=== PATIENT | male | born 1935 | race Native Hawaiian/Other Pacific Islander ===

== ENCOUNTER 2020-12-11 18:09 | Outpatient (CLI) | payer MEDICARE, MEDICAID | END 2020-12-11 18:10 | disposition critical access hospital (66) | LOC: EMS 18:09 | DX: R06.02 Shortness of breath (principal); R50.9 Fever, unspecified | CPT/HCPCS: A0425; A0429 ==

== ENCOUNTER 2020-12-11 18:29 | Emergency (ER) | payer MEDICARE, MEDICAID ==
[2020-12-11 19:01] LABS: BASOPHILS % (AUTO) 0.2 %; EOSINOPHILS % (AUTO) 0.1 %; HCT - HEMATOCRIT 37.4 % (42.0-52.0); HGB - HEMOGLOBIN 11.9 g/dL (14.0-18.0); LYMPHOCYTES # (AUTO) 0.1 10^3/uL (1.5-3.5); LYMPHOCYTES % (AUTO) 1.2 %; MEAN CORPUSCULAR HEMOGLOBIN 29.8 pg (27.0-31.0); MEAN CORPUSCULAR HGB CONC 31.8 g/dL (32.0-36.0); MEAN CORPUSCULAR VOLUME 93.5 fL (80.0-94.0); MEAN PLATELET VOLUME 8.8 fL (7.4-11.4); MONOCYTES # (AUTO) 0.2 10^3/uL (0.0-1.0); MONOCYTES % (AUTO) 2.5 %; NEUTROPHILS # (AUTO) 7.9 10^3/uL (1.5-6.6); NEUTROPHILS % (AUTO) 95.8 %; PLT - PLATELET COUNT 165 10^3/uL (130-450); RED CELL DISTRIBUTION WIDTH 14.2 % (12.0-15.0); WHITE BLOOD COUNT 8.3 x10^3/uL (4.8-10.8)
[2020-12-11 19:20] LABS: ALBUMIN 2.7 g/dL (3.2-5.5); ALBUMIN/GLOBULIN RATIO 0.6 (1.0-2.2); BILIRUBIN,TOTAL 1.8 mg/dL (0.2-1.0); CALCIUM 7.5 mg/dL (8.5-10.3); POTASSIUM 3.5 mmol/L (3.5-5.0); TOTAL PROTEIN 7.1 g/dL (6.7-8.2)
--- NOTE | 2020-12-11 19:44 | XRAY Report ---
PROCEDURE: Chest 1 View X-Ray INDICATIONS: Chest Pain TECHNIQUE: One view of the chest was acquired. COMPARISON: None FINDINGS: Surgical changes and devices: A left chest wall pacer is seen with a single intact lead. Lungs and pleura: No pleural effusions or pneumothorax. Bibasilar atelectasis is noted. Lungs are c lear. Mediastinum: Mediastinal contours appear normal. Heart size is normal. Bones and chest wall: No suspicious bony lesions. Overlying soft tissues appear unremarkable. IMPRESSION: Bibasilar atelectasis, otherwise no acute cardiopulmonary abnormality. Reviewed by: Williams Benitez on 12/11/2020 7:42 PM PDT Approved by: Williams Benitez on 12/11/2020 7:42 PM PDT Station ID: [id number]
--- NOTE | 2020-12-11 19:52 | ED Physician Documentation ---
History of Present Illness - Stated complaint Stated Complaint: SOA - Chief complaint Chief Complaint: Resp - History obtained from History obtained from: Patient, Family, EMS - History of Present Illness Timing: Today Pain level max: 0 Pain level now: 0 - Additonal information Additional information: Patient is an 85-year-old male brought in by EMS with his family for fever and mild cough and congestion today. Has had his Covid vaccination. No vomiting. A grandson has been sick recently as well. Nothing makes it better or worse. No chest pain. No diarrhea. No constipation. No recent travel. No antibiotics. Review of Systems Ten Systems: 10 systems reviewed and negative Constitutional: reports: Fever, Chills Nose: denies: Rhinorrhea / runny nose, Congestion GI: denies: Vomiting Skin: denies: Rash Musculoskeletal: denies: Neck pain, Back pain Neurologic: denies: Headache PD PAST MEDICAL HISTORY - Past Medical History Past Medical History: Yes Cardiovascular: Hypertension, High cholesterol, Coronary artery disease - Past Surgical History Past Surgical History: Yes Cardiovascular: Pacemaker - Allergies Allergies/Adverse Reactions: Allergies Allergy/AdvReac Type Severity Reaction Status Date / Time No Known Drug Allergies Allergy Verified 12/11/20 18:43 - Living Situation Living Situation: reports: With family Living Arrangement: reports: At home - Social History Does the pt smoke?: No Smoking Status: Never smoker Does the pt have substance abuse?: No - Family History Family history: reports: Non contributory PD ED PE NORMAL - Vitals Vital signs reviewed: Yes - General General: Alert and oriented X 3, No acute distress, Well developed/nourished - HEENT HEENT: Moist mucous membranes - Neck Neck: Supple, no meningeal sign - Cardiac Cardiac: RRR, Strong equal pulses - Respiratory Respiratory: No respiratory distress, Clear bilaterally - Abdomen Abdomen: Soft, Other (mild TTP RUQ, no peritoneal signs. ) - Back Back: No CVA TTP, No spinal TTP - Derm Derm: Warm and dry - Extremities Extremities: No edema - Neuro Neuro: Alert and oriented X 3 - Psych Psych: Normal mood, Normal affect Results - Vitals Vitals: Vital Signs - 24 hr 12/11/20 12/11/20 12/11/20 18:35 18:53 19:22 Temperature 38.0 C H Heart Rate 73 75 83 Respiratory 18 29 H 24 Rate Blood Pressure 139/49 H 143/59 H 147/66 H O2 Saturation 92 92 92 12/11/20 12/11/20 12/11/20 19:30 20:07 20:30 Temperature Heart Rate 86 92 90 Respiratory 18 30 H 16 Rate Blood Pressure 165/74 H 165/74 H 140/72 H O2 Saturation 92 92 91 L 12/11/20 12/11/20 21:00 21:30 Temperature Heart Rate 90 92 Respiratory 25 H 24 Rate Blood Pressure 133/118 H 151/57 H O2 Saturation 93 90 L Oxygen O2 Source Room air - Labs Labs: Laboratory Tests 12/11/20 12/11/20 12/11/20 18:56 18:56 18:56 WBC 8.3 RBC 4.00 L Hgb 11.9 L Hct 37.4 L MCV 93.5 MCH 29.8 MCHC 31.8 L RDW 14.2 Plt Count 165 MPV 8.8 Neut # (Auto) 7.9 H Lymph # (Auto) 0.1 L Bandera # (Auto) 0.2 Eos # (Auto) 0.0 Baso # (Auto) 0.0 Absolute Nucleated RBC 0.00 Nucleated RBC % 0.0 Sodium 137 Potassium 3.5 Chloride 103 Carbon Dioxide 25 Anion Gap 9.0 BUN 24 H Creatinine 2.0 H Estimated GFR (MDRD) 32 L Glucose 137 H Calcium 7.5 L Total Bilirubin 1.8 H AST 482 H ALT 304 H Alkaline Phosphatase 390 H Troponin I High Sens 57.4 H* Total Protein 7.1 Albumin 2.7 L Globulin 4.4 H Albumin/Globulin Ratio 0.6 L Lipase 49 Nasal Adenovirus (PCR) Nasal B. parapertussis DNA (PCR) Nasal Coronavir 229E PCR Nasal Coronavir HKU1 PCR Nasal Coronavir NL63 PCR Nasal Coronavir OC43 PCR Nasal Enterovir/Rhinovir PCR Nasal Influenza B PCR Nasal Influenza A PCR Nasal Parainfluen 1 PCR Nasal Parainfluen 2 PCR Nasal Parainfluen 3 PCR Nasal Parainfluen 4 PCR Nasal RSV (PCR) Nasal B.pertussis DNA PCR Nasal C.pneumoniae (PCR) Ashish Human Metapneumo PCR Nasal M.pneumoniae (PCR) Nasal SARS-CoV-2 (PCR) 12/11/20 19:17 WBC RBC Hgb Hct MCV MCH MCHC RDW Plt Count MPV Neut # (Auto) Lymph # (Auto) Bandera # (Auto) Eos # (Auto) Baso # (Auto) Absolute Nucleated RBC Nucleated RBC % Sodium Potassium Chloride Carbon Dioxide Anion Gap BUN Creatinine Estimated GFR (MDRD) Glucose Calcium Total Bilirubin AST ALT Alkaline Phosphatase Troponin I High Sens Total Protein Albumin Globulin Albumin/Globulin Ratio Lipase Nasal Adenovirus (PCR) NOT DETECTED Nasal B. parapertussis DNA (PCR) NOT DETECTED Nasal Coronavir 229E PCR NOT DETECTED Nasal Coronavir HKU1 PCR NOT DETECTED Nasal Coronavir NL63 PCR NOT DETECTED Nasal Coronavir OC43 PCR NOT DETECTED Nasal Enterovir/Rhinovir PCR NOT DETECTED Nasal Influenza B PCR NOT DETECTED Nasal Influenza A PCR NOT DETECTED Nasal Parainfluen 1 PCR NOT DETECTED Nasal Parainfluen 2 PCR NOT DETECTED Nasal Parainfluen 3 PCR NOT DETECTED Nasal Parainfluen 4 PCR NOT DETECTED Nasal RSV (PCR) NOT DETECTED Nasal B.pertussis DNA PCR NOT DETECTED Nasal C.pneumoniae (PCR) NOT DETECTED Ashish Human Metapneumo PCR NOT DETECTED Nasal M.pneumoniae (PCR) NOT DETECTED Nasal SARS-CoV-2 (PCR) NOT DETECTED - Rads (name of study) cxr Radiology: Final report received, EMP read contemporaneously, See rad report (IMPRESSION: Bibasilar atelectasis, otherwise no acute cardiopulmonary abnormality. ) CT abd.pelvis Radiology: Other (pending at sign out) RUQ US Radiology: Final report received, EMP read contemporaneously, See rad report (IMPRESSION: Distended gallbladder with sludge and a thickened wall with a markedly dilated common bile duct. Findings suggest cholecystitis and possible choledocholithiasis. Consider MRCP. ) PD MEDICAL DECISION MAKING - ED course Complexity details: reviewed results, re-evaluated patient, considered differential, d/w patient ED course: 85-year-old male with findings concerning for choledocholithiasis and cholecystitis. He will likely need an MRCP and possible ERCP. He is visiting from [place]. Patient will be signed out to the [facility] emergency department physician for final disposition. Departure - Departure Clinical Impression: Cholecystitis, Elevated LFTs, Common bile duct dilation Fever Qualifiers: Fever type: unspecified Qualified Code(s): R50.9 - Fever, unspecified Condition: Stable
[2020-12-11 20:21] LABS: B. PARAPERTUSSIS- RESP PCR PAN NOT DETECTED; CORONAVIRUS 229E-RESP PCR NOT DETECTED; CORONAVIRUS HKU1-RESP PCR NOT DETECTED; CORONAVIRUS NL63-RESP PCR NOT DETECTED; CORONAVIRUS OC43-RESP PCR NOT DETECTED; HUMAN METAPNEUMOVIRUS NOT DETECTED; INFLUENZA A- RESP PCR PANEL NOT DETECTED; INFLUENZA B - RESP PCR PANEL NOT DETECTED; PARAINFLUENZA VIRUS 1 NOT DETECTED; PARAINFLUENZA VIRUS 2 NOT DETECTED; PARAINFLUENZA VIRUS 3 NOT DETECTED; PARAINFLUENZA VIRUS 4 NOT DETECTED; RHINOVIRUS/ENTEROVIRUS NOT DETECTED; RSV- RESP PCR PANEL NOT DETECTED; SARS-CoV-2 -RESP PCR PANEL NOT DETECTED
[2020-12-11 20:22] LABS: B. PERTUSSIS- RESP PCR PANEL NOT DETECTED; C. PNEUMONIAE- RESP PCR PANEL NOT DETECTED; M. PNEUMONIAE- RESP PCR PANEL NOT DETECTED
--- NOTE | 2020-12-11 21:51 | Ultrasound Report ---
PROCEDURE: Abdomen Limited INDICATIONS: elevated LFT, fever TECHNIQUE: Real-time focused scanning was performed of the abdomen, with image documentation. COMPARISON: None FINDINGS: Liver: Hepatic echotexture is coarse. Liver contours are irregular. These findings are suspicious for cirrhosis. No hepatic mass or intrahepatic biliary ductal dilatation. Gallbladder: There is gallbladder sludge with a thickened wall measuring 5.5 mm. Trace pericholecysti c fluid is noted. Gallbladder hydrops is present with the gallbladder measuring up to 4.3 x 9.8 cm. Biliary tree: The common bile duct measures up to 25 mm, significantly dilated. Right kidney: The right kidney has a normal size. There is a simple 1.6 cm mid pole cyst. IMPRESSION: Distended gallbladder with sludge and a thickened wall with a markedly dilated common b ile duct. Findings suggest cholecystitis and possible choledocholithiasis. Consider MRCP. Reviewed by: Williams Benitez on 12/11/2020 9:50 PM PDT Approved by: Williams Benitez on 12/11/2020 9:50 PM PDT Station ID: [id number]
[2020-12-11] MEDS ORDERED: PIPERACILLIN/TAZOBACTAM 3.375 GM in SODIUM CHLORIDE 0.9% MINIBAG 100 ML IV STA (22:16)
[2020-12-11] MEDS ORDERED: SODIUM CHLORIDE 0.9% 1,000 ML IV STA (22:21)
--- NOTE | 2020-12-11 22:48 | CT Report ---
PROCEDURE: Abdomen/Pelvis WO INDICATIONS: dilated CBD, fever, elevated LFT TECHNIQUE: Noncontrast 5 mm thick sections acquired from the diaphragms to the symphysis. 5 mm coronal and sagi ttal reformats were then performed. For radiation dose reduction, the following was used: automated exposure control, adjustment of mA and/or kV according to patient size. COMPARISON: None. FINDINGS: Image quality: Excellent. ABDOMEN: Lung bases: Lung bases are clear. Heart size is normal. Solid organs: Liver and spleen are normal in size. The gallbladder is dilated consistent with hydrop s of the gallbladder. The common bile duct is also severely dilated measuring up to 28 cm. No pancrea tic mass or pancreatic ductal dilatation is seen. No adrenal nodules. Bilateral simple renal cysts ar e noted. No hydronephrosis or nephroureteral calculi. Peritoneum and bowel: Unenhanced bowel loops demonstrate normal wall thickness and caliber. No free fluid or air. Nodes and vessels: No retroperitoneal or mesenteric adenopathy by size criteria. Aorta and inferior vena cava are normal in caliber. Miscellaneous: No ventral hernias. PELVIS: Genitourinary: Bladder wall thickness is normal. Miscellaneous: No inguinal hernias or adenopathy. Bones: There are multilevel degenerative changes and multilevel disc disease with intradiscal gas see n. No lytic or sclerotic osseous lesions. No vertebral body compression fractures. IMPRESSION: Gallbladder dilation and severe extrahepatic biliary ductal dilatation. Mild intrahepati c biliary ductal dilatation. No gallstone is identified. No pancreatic mass is identified. Charmaine Velez RCP. Reviewed by: Williams Benitez on 12/11/2020 10:47 PM PDT Approved by: Williams Benitez on 12/11/2020 10:47 PM PDT Station ID: [id number]
[2020-12-11] MEDS ORDERED: cefTRIAXone 1 GM in SODIUM CHLORIDE 0.9% MINIBAG 100 ML IV STA (23:51)
--- NOTE | 2020-12-11 23:55 | ED Physician Documentation ---
ED Addendum - Addendum Addendum: 12/11/20 23:54 d/w our surgeon Dr. Vargas who recommends transfer given patient's reyes rbidities. will contact Marilou charles. patient in nad, resting comfortably, asking to go home. d/w family who are agreeable to transfer. 12/11/20 23:55 Impression 1. acute cholangitis 2. shortness of breath 12/12/20 03:25 d/w [facility] - patient approved for admission, however there are no beds available. GI attending felt it was reasonable to send to for ERCP. Patient can go through the emergency department. They will call me back. 12/12/20 03:26 12/12/20 03:28 12/12/20 04:08 d/w ICU Dr. Samuel - no beds, we are 2nd on the list. ERCP attending would like to do ERCP within 24 h. They will call back in the morning. 12/12/20 07:[address] Pastrana, reji LAZCANO.
[2020-12-12] MEDS ORDERED: PIPERACILLIN/TAZOBACTAM 3.375 GM in SODIUM CHLORIDE 0.9% MINIBAG 100 ML IV SCH (07:20)
[2020-12-12] MEDS: PIPERACILLIN/TAZOBACTAM 3.375 GM in SODIUM CHLORIDE 0.9% MINIBAG 100 ML IV SCH ×2 (09:35→16:46)
--- NOTE | 2020-12-12 21:19 | ED Physician Documentation ---
ED Addendum - Addendum Addendum: 12/12/20 21:17 Got a call from the transfer center at asking for repeat vital signs. discussed that we are allowing patient to progress diet to [facility] since we have no eta for transfer. Transfer center states they currently do not have a bed and have no eta but will continue to call in for updates.
[2020-12-12] MEDS ORDERED: ENOXAPARIN 30 MG/0.3 ML SYRINGE SUBQ STA (21:21)
[2020-12-12 21:31] LABS: BASOPHILS % (AUTO) 0.1 %; EOSINOPHILS # (AUTO) 0.2 10^3/uL (0.0-0.7); EOSINOPHILS % (AUTO) 1.9 %; HCT - HEMATOCRIT 35.4 % (42.0-52.0); HGB - HEMOGLOBIN 11.6 g/dL (14.0-18.0); LYMPHOCYTES # (AUTO) 0.8 10^3/uL (1.5-3.5); LYMPHOCYTES % (AUTO) 8.7 %; MEAN CORPUSCULAR HGB CONC 32.8 g/dL (32.0-36.0); MEAN CORPUSCULAR VOLUME 91.5 fL (80.0-94.0); MEAN PLATELET VOLUME 8.7 fL (7.4-11.4); MONOCYTES # (AUTO) 0.4 10^3/uL (0.0-1.0); MONOCYTES % (AUTO) 3.9 %; NEUTROPHILS # (AUTO) 7.6 10^3/uL (1.5-6.6); PLT - PLATELET COUNT 143 10^3/uL (130-450); RED BLOOD COUNT 3.87 10^6/uL (4.70-6.10); RED CELL DISTRIBUTION WIDTH 14.5 % (12.0-15.0)
[2020-12-12 21:49] LABS: ALBUMIN 2.5 g/dL (3.2-5.5); ALBUMIN/GLOBULIN RATIO 0.6 (1.0-2.2); BILIRUBIN,TOTAL 2.8 mg/dL (0.2-1.0); CALCIUM 7.6 mg/dL (8.5-10.3); CREATININE 1.6 mg/dL (0.6-1.2); POTASSIUM 3.3 mmol/L (3.5-5.0); TOTAL PROTEIN 6.7 g/dL (6.7-8.2)
[2020-12-12 23:51] VITALS: BP 116/44
== END 2020-12-13 00:23 | disposition short-term general hospital (02) ==
LOC: ED 18:29
DX: K81.9 Cholecystitis, unspecified (principal); R94.5 Abnormal results of liver function studies; K83.1 Obstruction of bile duct; K83.09 Other cholangitis; Z20.822 Contact with and (suspected) exposure to COVID-19
CPT/HCPCS: 36415; 71045; 74176; 76705; 80053; 83605; 83690; 84484; 85025; 87040; 87631; 93005; 96365; 96366; 99284; 99285; J1650; 0202U

== ENCOUNTER 2020-12-13 00:16 | Outpatient (CLI) | payer MEDICARE, MEDICAID | END 2020-12-13 00:17 | disposition short-term general hospital (02) | LOC: EMS 00:16 | PROVIDERS: ATTEND Emergency Medicine | DX: K83.09 Other cholangitis (principal) | CPT/HCPCS: A0425; A0426 ==